=== PATIENT | male | born 1995 | race Caucasian/White ===

== ENCOUNTER 2023-01-10 18:13 | Emergency (ER) | payer BC ==
[2023-01-10] MEDS ORDERED: EPINEPHrine 1 MG/ML SDV IM ONE (18:21)
[2023-01-10] MEDS ORDERED: diphenhydrAMINE 50 MG/ML SDV IVPUSH ONE (18:21)
[2023-01-10] MEDS ORDERED: Famotidine 20 MG/2 ML SDV IVPUSH ONE (18:21)
[2023-01-10] MEDS ORDERED: methylPREDNISolone Sodium Succinate 125 MG/2 ML SDV IV ONE (18:21)
[2023-01-10] MEDS ORDERED: Sodium Chloride 0.9% 10 ML Syringe FLUSH PRN (18:21)
== END 2023-01-10 22:01 | disposition home or self-care (01) ==
LOC: JP.ED 18:13
DX: T63.441A Toxic effect of venom of bees, accidental (unintentional), initial encounter (principal)
CPT/HCPCS: 96372; 96374; 96375; 99282; J0171; J1200; J2930; J3490

== ENCOUNTER 2024-01-24 16:22 | Emergency (ER) | payer BC ==
[2024-01-24] MEDS: Bacitracin Oint 1 GM U/D Packet TOP ONE (17:53)
[2024-01-24] MEDS: Lidocaine 1% 5 ML VIAL INJECT ONE (17:53)
== END 2024-01-24 17:55 | disposition home or self-care (01) ==
LOC: JP.ED 16:22
DX: S61.211A Laceration without foreign body of left index finger without damage to nail, initial encounter (principal); S61.213A Laceration without foreign body of left middle finger without damage to nail, initial encounter; Z91.030 Bee allergy status; Z79.899 Other long term (current) drug therapy; W26.8XXA Contact with other sharp object(s), not elsewhere classified, initial encounter; Y93.89 Activity, other specified
CPT/HCPCS: 12002; 99282; 99283